=== PATIENT | female | born 1995 | race Caucasian/White ===

== ENCOUNTER 2018-08-15 19:21 | Emergency (ER) | payer BC ==
[2018-08-15 19:28] VITALS: BP 132/68
--- NOTE | 2018-08-15 19:46 | ED ---
Skin Complaint - HPI Summary HPI Summary: Pt. is a 23 y.o female who presents to the ER for a facial rash x 2 days. Pt. states she noticed a tight, itching sensation to chin that progressed into a rash that spread around mouth and nose. Pt. 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 Pt. states that rash got worse today and she presented to the ER. Pt. initially thought rash was an allergic rxn and took benadryl without improvement. She denies any recent medication use, new exposures, creams, lotions, ect. Pt. denies past medical hx. Denies hx of eczema, dermatitis, psoriasis. Denies recent illness, fever, chills, URI sxs, rash to palms or soles of feet. Symptoms are mild in severity. No current modifying factors. - History of Current Complaint Chief Complaint: EDRashSkinAbscess Time Seen by Provider: 08/15/18 19:36 Stated Complaint: RASH Hx Obtained From: Patient Pain Intensity: 2 - Allergy/Home Medications Allergies/Adverse Reactions: Allergies Allergy/AdvReac Type Severity Reaction Status Date / Time ibuprofen Allergy Severe Swelling Verified 08/15/18 19:25 Of Face,Lips,& Throat PMH/Surg Hx/FS Hx/Imm Hx Previously Healthy: Yes Infectious Disease History: No Infectious Disease History: Denies: Traveled Outside the [place] in Last 30 Days - Family History Known Family History: Positive: Other - Noncontributory - Social History Occupation: Student Lives: Dormitory/Roommates Review of Systems Constitutional: Negative Negative: Fever, Chills ENT: Negative Positive: Rash All Other Systems Reviewed And Are Negative: Yes Physical Exam Triage Information Reviewed: Yes Vital Signs On Initial Exam: Initial Vitals Temp Pulse Resp BP Pulse Ox 98.6 F 79 14 132/68 100 08/15/18 19:22 08/15/18 19:22 08/15/18 19:22 08/15/18 19:22 08/15/18 19:22 Vital Signs Reviewed: Yes Appearance: Positive: Well-Appearing - Pt. sitting on bed in NAD. Pleasant. Skin: Positive: Warm, Dry, Other - Small, papular rash noted to the perioral region, chin and around nostrils bilaterally. Skin is erythematous. Head/Face: Positive: Normal Head/Face Inspection Eyes: Positive: Normal, EOMI Neck: Positive: Supple Neurological: Positive: Normal, CN Intact II-III Psychiatric: Positive: Affect/Mood Appropriate Diagnostics - Vital Signs Vital Signs Temp Pulse Resp BP Pulse Ox 08/15/18 19:22 98.6 F 79 14 132/68 100 - Laboratory Lab Statement: Any lab studies that have been ordered have been reviewed, and results considered in the medical decision making process. Course/Dx - Course Course Of Treatment: Pt. presenting for facial rash. Rash is most consistent with perioral dermatitis. Will try a course of doxycycline. Advised pt. to avoid wearing makeup or creams. To schedule a f.u apt. with [facility] and possible dermatology referral if rash persist. Pt. understands and agrees with plan. - Differential Diagnoses - Skin Complaint Differential Diagnoses: Abscess, Cellulitis, Eczema, Impetigo, Poison Mikayla, Scabies, Tinea, Urticaria - Diagnoses Provider Diagnoses: Perioral dermatitis Discharge - Sign-Out/Discharge Documenting (check all that apply): Patient Departure - Discharge Plan Condition: Good Disposition: HOME Prescriptions: DOXYcycline CAP(*) [DOXYcycline 100MG CAP(*)] 100 mg PO BID #20 cap Referrals: No Primary Care Phys,NOPCP [Primary Care Provider] - [facility] [Outside] Additional Instructions: Schedule a follow up appointment with [facility] if rash persist Take doxycycline as directed Avoid creams and makeup Return to ER if symptoms change or worsen - Billing Disposition and Condition Condition: GOOD Disposition: Home
[2018-08-15] MEDS ORDERED: DOXYcycline CAP(*) 100 MG PO ONE (20:26)
== END 2018-08-15 20:47 | disposition home or self-care (01) ==
LOC: ED 19:21
DX: L71.0 Perioral dermatitis (principal); R21 Rash and other nonspecific skin eruption
CPT/HCPCS: 99281; A9270-GY

== ENCOUNTER 2018-10-18 03:05 | Emergency (ER) | payer OTHER ==
[2018-10-18] MEDS ORDERED: NS 0.9% 1000 ML* 1,000 ML IV ONE ×2 (03:32→04:58)
[2018-10-18] MEDS ORDERED: Metoclopramide IV* 5 MG/ML 2 ML VIAL IV ONE (03:33)
[2018-10-18 03:57] LABS: ABS Basophils 0.1 10^3/ul (0-0.2); ABS Eosinophils 0 10^3/ul (0-0.6); ABS Lymphocytes 0.9 10^3/ul (1.0-4.8); ABS Monocytes 0.6 10^3/ul (0-0.8); ABS Neutrophils 6.1 10^3/ul (1.5-7.7); ABS Nucleated RBC 0 10^3/ul; Eosinophil % 0 %; Hematocrit 40 % (35-47); Hemoglobin 13.7 g/dl (12.0-16.0); Lymphocyte % 12.1 %; Mean Corpuscular HGB Conc 35 g/dl (31-36); Mean Corpuscular Hemoglobin 31 pg (27-31); Mean Corpuscular Volume 89 fL (80-97); Mean Platelet Volume 7.3 fL (7.4-10.4); Nucleated Red Blood Cells % 0; Platelet Count 189 10^3/ul (150-450); Red Blood Count 4.43 10^6/ul (4.00-5.40); Red Cell Distribution Width 12 % (10.5-15); White Blood Count 7.7 10^3/ul (3.5-10.8)
[2018-10-18 04:15] LABS: EGFR Non-African American 102.3 (>60)
[2018-10-18] MEDS ORDERED: Azithromycin TAB* 250 MG PO ONE (04:35)
[2018-10-18] MEDS ORDERED: Levofloxacin 500 MG IVPREMIX(* 500 MG/100 ML BAG IVPB ONE (04:57)
[2018-10-18] MEDS ORDERED: Iohexol 300* (CONTRAST) 10 ML SDV IV ONE (05:57)
--- NOTE | 2018-10-18 06:06 | ED ---
HPI Febrile Illness - HPI Summary HPI Summary: The pt is a 23 y.o female who is presenting to the [facility] with a chief complaint of fever. The patient reports of a fever at 104 deg F initially and that it fluctuates between 103 to 104. She reports to have visited urgent care ([facility]) and the chest X-ray was taken. Flu, mono, and strep tests were previously taken in the urgent care and they were negative. Pt reports of coughing with phlegm (greenish brown), neck pain, abd pain, chest congestion, and FERRARA. Allergies were reported and reviewed. Symptoms are aggravated by nothing , symptoms are alleviated by nothing. she also talks about her poor appetite and that her abd pain was prior to the fever (previously dx of inflammation). Tylenol was taken 30 minutes prior to [facility] arrival. Pt is a student at [employer]. - History of Current Complaint Chief Complaint: EDFever Time Seen by Provider: 10/18/18 03:28 Hx Obtained From: Patient Onset/Duration: Started Hours Ago Timing: Constant Initial Severity: Moderate Current Severity: Moderate Pain Intensity: 6 Pain Scale Used: 0-10 Numeric Aggravating Factors: Nothing Alleviating Factors: Nothing Associated Signs and Symptoms: Cough, Other: - Chest congestion, abd pain, neck pain, and coughing and poor appetite - Allergy/Home Medications Allergies/Adverse Reactions: Allergies Allergy/AdvReac Type Severity Reaction Status Date / Time ibuprofen Allergy Severe Swelling Verified 10/18/18 03:11 Of Face,Lips,& Throat PMH/Surg Hx/FS Hx/Imm Hx Endocrine/Hematology History: Denies: Hx Diabetes Cardiovascular History: Denies: Hx Hypertension History: Denies: Hx Renal Disease - Immunization History Immunizations Up to Date: Yes Infectious Disease History: No Infectious Disease History: Denies: Traveled Outside the [place] in Last 30 Days - Family History Known Family History: Positive: Other - Noncontributory - Social History Occupation: Student Lives: Dormitory/Roommates Alcohol Use: Occasionally Substance Use Type: Reports: None Smoking Status (MU): Never Smoked Tobacco Review of Systems Positive: Fever Eyes: Negative ENT: Negative Respiratory: Other - chest congestion Positive: Cough - productive with greenish/brownish phelgm Gastrointestinal: Other - poor appetite Positive: Abdominal Pain - right side Genitourinary: Negative Musculoskeletal: Other - Neck pain Skin: Negative Positive: Headache Psychological: Normal, Other - Negative SI and HI All Other Systems Reviewed And Are Negative: Yes Physical Exam - Summary Physical Exam Summary: GENERAL: Patient is a well-developed and nourished Female who is lying comfortable in the stretcher. Patient is not in any acute respiratory distress. HEAD AND FACE: Normocephalic EYES: PERRLA, EOMI x 2. EARS: Hearing grossly intact. MOUTH: Oropharynx within normal limits. NECK: Supple, trachea is midline, no adenopathy, no JVD, no carotid bruit. CHEST: Symmetric, no tenderness at palpation LUNGS: Clear to auscultation bilaterally. No wheezing or crackles. CVS: Regular rate and rhythm, S1 and S2 present, no murmurs or gallops appreciated. ABDOMEN: Tender in the right lower quadrant Neuro: no meningeal sign EXTREMITIES: Full ROM in all major joints, no edema, no cyanosis or clubbing. NEURO: Alert and oriented x 3. No acute neurological deficits. Speech is normal and follows commands. SKIN: Dry and warm Triage Information Reviewed: Yes Vital Signs On Initial Exam: Initial Vitals Temp Pulse Resp BP Pulse Ox 98.4 F 95 16 125/69 96 10/18/18 03:09 10/18/18 03:09 10/18/18 03:09 10/18/18 03:09 10/18/18 03:09 Vital Signs Reviewed: Yes Diagnostics - Vital Signs Vital Signs Temp Pulse Resp BP Pulse Ox 10/18/18 03:10 100.4 F 10/18/18 03:09 98.4 F 95 16 125/69 96 - Laboratory Lab Results: Lab Results 10/18/18 10/18/18 10/18/18 Range/Units 03:40 03:40 03:40 WBC 7.7 (3.5-10.8) 10^3/ul RBC 4.43 (4.00-5.40) 10^6/ul Hgb 13.7 (12.0-16.0) g/dl Hct 40 (35-47) % MCV 89 (80-97) fL MCH 31 (27-31) pg MCHC 35 (31-36) g/dl RDW 12 (10.5-15) % Plt Count 189 (150-450) 10^3/ul MPV 7.3 L (7.4-10.4) fL Neut % (Auto) 78.9 % Lymph % (Auto) 12.1 % Howard % (Auto) 8.2 % Eos % (Auto) 0 % Baso % (Auto) 0.8 % Absolute Neuts (auto) 6.1 (1.5-7.7) 10^3/ul Absolute Lymphs (auto) 0.9 L (1.0-4.8) 10^3/ul Absolute Monos (auto) 0.6 (0-0.8) 10^3/ul Absolute Eos (auto) 0 (0-0.6) 10^3/ul Absolute Basos (auto) 0.1 (0-0.2) 10^3/ul Absolute Nucleated RBC 0 10^3/ul Nucleated RBC % 0 Sodium 130 L (135-145) mmol/L Potassium 3.6 (3.5-5.0) mmol/L Chloride 97 L (101-111) mmol/L Carbon Dioxide 24 (22-32) mmol/L Anion Gap 9 (2-11) mmol/L BUN 5 L (6-24) mg/dL Creatinine 0.72 (0.51-0.95) mg/dL Est GFR ( Amer) 123.7 (>60) Est GFR (Non-Af Amer) 102.3 (>60) BUN/Creatinine Ratio 6.9 L (8-20) Glucose 132 H (70-100) mg/dL Lactic Acid 0.7 (0.5-2.0) mmol/L Calcium 9.5 (8.6-10.3) mg/dL Total Bilirubin 0.40 (0.2-1.0) mg/dL AST 17 (13-39) U/L ALT 19 (7-52) U/L Alkaline Phosphatase 37 (34-104) U/L C-Reactive Protein 179.89 H (<8.01) mg/L Total Protein 7.5 (6.4-8.9) g/dL Albumin 4.3 (3.2-5.2) g/dL Globulin 3.2 (2-4) g/dL Albumin/Globulin Ratio 1.3 (1-3) Amylase 54 (29-103) U/L Lipase 33 (11.0-82.0) U/L Procalcitonin (<0.6) ng/mL Beta HCG, Quant < 0.60 mIU/mL Monoscreen Negative (Negative) 10/18/18 Range/Units 03:50 WBC (3.5-10.8) 10^3/ul RBC (4.00-5.40) 10^6/ul Hgb (12.0-16.0) g/dl Hct (35-47) % MCV (80-97) fL MCH (27-31) pg MCHC (31-36) g/dl RDW (10.5-15) % Plt Count (150-450) 10^3/ul MPV (7.4-10.4) fL Neut % (Auto) % Lymph % (Auto) % Howard % (Auto) % Eos % (Auto) % Baso % (Auto) % Absolute Neuts (auto) (1.5-7.7) 10^3/ul Absolute Lymphs (auto) (1.0-4.8) 10^3/ul Absolute Monos (auto) (0-0.8) 10^3/ul Absolute Eos (auto) (0-0.6) 10^3/ul Absolute Basos (auto) (0-0.2) 10^3/ul Absolute Nucleated RBC 10^3/ul Nucleated RBC % Sodium (135-145) mmol/L Potassium (3.5-5.0) mmol/L Chloride (101-111) mmol/L Carbon Dioxide (22-32) mmol/L Anion Gap (2-11) mmol/L BUN (6-24) mg/dL Creatinine (0.51-0.95) mg/dL Est GFR ( Amer) (>60) Est GFR (Non-Af Amer) (>60) BUN/Creatinine Ratio (8-20) Glucose (70-100) mg/dL Lactic Acid (0.5-2.0) mmol/L Calcium (8.6-10.3) mg/dL Total Bilirubin (0.2-1.0) mg/dL AST (13-39) U/L ALT (7-52) U/L Alkaline Phosphatase (34-104) U/L C-Reactive Protein (<8.01) mg/L Total Protein (6.4-8.9) g/dL Albumin (3.2-5.2) g/dL Globulin (2-4) g/dL Albumin/Globulin Ratio (1-3) Amylase (29-103) U/L Lipase (11.0-82.0) U/L Procalcitonin 0.2 (<0.6) ng/mL Beta HCG, Quant mIU/mL Monoscreen (Negative) Result Diagrams: 10/18/18 03:40 10/18/18 03:40 Lab Statement: Any lab studies that have been ordered have been reviewed, and results considered in the medical decision making process. - Radiology Chest X-ray Radiology Interpretation Completed By: ED Physician Summary of Radiographic Findings: Chest X-ray reveals positive findings for right upper lobe pneumonia as per ED Physician. - CT CT A/P CT Interpretation Completed By: Radiologist Summary of CT Findings: CT A/P reveals as per radiologist 1. Mild hepatomegaly. 2. Small amount of free intraperitoneal fluid. The ED Physician has reviewed this radiology report. Course/Dx - Course Course Of Treatment: The pt is a 23 y.o female presenting to the [facility] with a chief compalint of fever. The workup was remarkable for abd pain and chest congestion. The pt will be signed out to Dr. Camejo. The Dx will be pneumonia and abd pain and will be discharged home. - Diagnoses Provider Diagnoses: Pneumonia, Abdominal pain Discharge - Sign-Out/Discharge Documenting (check all that apply): Patient Departure - Discharge home - Discharge Plan Condition: Stable Disposition: HOME Referrals: No Primary Care Phys,NOPCP [Primary Care Provider] - - Attestation Statements Document Initiated by Scribe: Yes Documenting Scribe: Winston Ruiz Provider For Whom Scribe is Documenting (Include Credential): Dr. Vivienne Staples Scribe Attestation: Winston Pimentel, cherieed for Dr. Vivienne Staples on 10/18/18 at 0745. Status of Scribe Document: Ready
[2018-10-18 06:16] LABS: Urine Appearance Clear; Urine Blood Negative (Negative); Urine Color Yellow; Urine Ketones 1+ (Negative); Urine Protein Negative (Negative); Urine Red Blood Cell 1+(3-5/hpf) (Absent); Urine Specific Gravity 1.006 (1.010-1.030); Urine Urobilinogen Negative (Negative); Urine White Blood Cell Trace(0-5/hpf) (Absent)
--- NOTE | 2018-10-18 07:39 | ED ---
Progress - Progress Note Progress Note: 0730 - The patient is stable and feels better. VITAL SIGNS: Reviewed. GENERAL: Patient is a well-developed and nourished female who is lying comfortable in the stretcher. Patient is not in any acute respiratory distress. HEAD AND FACE: No signs of trauma. No ecchymosis, hematomas or skull depressions. No sinus tenderness. EYES: PERRLA, EOMI x 2, No injected conjunctiva, no nystagmus. EARS: Hearing grossly intact. Ear canals and tympanic membranes are within normal limits. MOUTH: Oropharynx within normal limits. NECK: Supple, trachea is midline, no adenopathy, no JVD, no carotid bruit, no c- spine tenderness, neck with full ROM. CHEST: Symmetric, no tenderness at palpation LUNGS: Clear to auscultation bilaterally. No wheezing or crackles. CVS: Regular rate and rhythm, S1 and S2 present, no murmurs or gallops appreciated. ABDOMEN: Soft, non-tender. No signs of distention. No rebound no guarding, and no masses palpated. Bowel sounds are normal. EXTREMITIES: FROM in all major joints, no edema, no cyanosis or clubbing. NEURO: Alert and oriented x 3. No acute neurological deficits. Speech is normal and follows commands. SKIN: Dry and warm Course/Dx - Course Course Of Treatment: The patient is a 23 y/o F signed out by Dr. Staples pending a CT scan. She is presently stable and in no acute distress. - Diagnoses Provider Diagnoses: Pneumonia, Abdominal pain Discharge - Discharge Plan Condition: Stable Referrals: No Primary Care Phys,NOPCP [Primary Care Provider] - - Attestation Statements Document Initiated by Rubioibe: Yes Documenting Scribe: Annetta Petersen Provider For Whom Christina is Documenting (Include Credential): Griffin Camejo MD. Scribe Attestation: Annetta Pimentel, cherieed for Griffin Camejo MD. on 10/18/18 at 0739. Status of Scribe Document: Ready
[2018-10-18 08:13] VITALS: BP 111/72
== END 2018-10-18 08:13 | disposition home or self-care (01) ==
LOC: ED 03:05
DX: J18.9 Pneumonia, unspecified organism (principal); R10.9 Unspecified abdominal pain; R05 Cough; M54.2 Cervicalgia; R50.9 Fever, unspecified
CPT/HCPCS: 36415; 71046; 74177; 80053; 81003; 81015; 82150; 83605; 83690; 84145; 84702; 85025; 86140; 86308; 87040; 87086; 87651; 96361; 96365; 96366; 99282; J1956; J2765; Q9967